=== PATIENT | male | born 1955 | race Caucasian/White ===

== ENCOUNTER 2020-05-01 08:21 | Outpatient (REF) | payer MEDICARE, SELFPAY ==
--- NOTE | 2020-08-14 15:12 | MHC.AU.HFU ---
Regarding patient visit and associated charges on 05/01/2020: Patient has a known sensorineural hearing loss (H90.3) for which he was fit with binaural hearing aids on 06/18/2015. Patient brought in a hearing aid when was not working properly. Attempts to repair in house were not successful. Patient agreed to have the hearing aid sent out for repair by the seamer elastic band. Patient picked up the repaired hearing aid on 05/01/2020. Note entered by Maurice Power following chart review.
== END 2020-05-01 08:22 | disposition home or self-care (01) ==
LOC: HO.HAP 08:21
PROVIDERS: Visit Provider Internal Medicine
DX: H90.3 Sensorineural hearing loss, bilateral (principal); Z46.1 Encounter for fitting and adjustment of hearing aid
CPT/HCPCS: V5014

== ENCOUNTER 2023-01-26 15:25 | Outpatient (REF) | payer SELFPAY | END 2023-01-26 15:26 | disposition home or self-care (01) | LOC: HO.HAP 15:25 | PROVIDERS: Visit Provider Internal Medicine | DX: Z13.89 Encounter for screening for other disorder (principal) ==

== ENCOUNTER 2023-02-06 16:03 | Outpatient (REF) | payer SELFPAY | END 2023-02-06 16:04 | disposition home or self-care (01) | LOC: HO.HAP 16:03 | DX: Z46.1 Encounter for fitting and adjustment of hearing aid (principal); H90.3 Sensorineural hearing loss, bilateral | CPT/HCPCS: V5014; V5267 ==